=== PATIENT | female | born 1975 | race Two or more races ===

== ENCOUNTER 2021-12-06 08:31 | Outpatient (CLI) | payer OTHER | END 2021-12-06 08:43 | disposition home or self-care (01) | LOC: RAD 08:31 | PROVIDERS: ATTEND Internal Medicine Gastroenterology | DX: Z12.31 Encounter for screening mammogram for malignant neoplasm of breast (principal); N60.19 Diffuse cystic mastopathy of unspecified breast; K59.09 Other constipation; Z12.11 Encounter for screening for malignant neoplasm of colon ==